=== PATIENT | female | born 1990 | race Caucasian/White ===

== ENCOUNTER 2024-04-17 05:20 | Inpatient (IN) | payer BC, SELFPAY ==
[2024-04-17 05:42] VITALS: BP 112/76; BMI 31.6
[2024-04-17 06:16] LABS: Hematocrit 29.4 % (37.0-47.0); Hemoglobin 9.6 g/dL (12.0-16.0); Mean Corp Hgb Conc. 32.7 g/dL (33.0-37.0); Mean Corpuscular Hgb 26.7 pg (27.0-31.0); Mean Corpuscular Volume 81.9 fL (81.0-99.0); Mean Platelet Volume 11.1 fL (7.4-10.4); Platelet Count 246 10^3/uL (130-400); Red Blood Cell Count 3.59 10^6/uL (4.20-5.40); Red Cell Dist. Width 14.4 % (11.5-14.5); White Blood Cell Count 9.4 10^3/uL (4.8-10.8)
[2024-04-17] MEDS: BICITRA 30 ML PO (06:27)
[2024-04-17] MEDS: TYLENOL 1000 MG PO (06:27)
[2024-04-17] MEDS: TORADOL 15 MG IV ×2 (13:14→19:19)
[2024-04-18] MEDS: TORADOL 15 MG IV ×2 (01:07→06:37)
[2024-04-18 05:32] LABS: Hematocrit 25.9 % (37.0-47.0); Hemoglobin 8.5 g/dL (12.0-16.0); Mean Corp Hgb Conc. 32.8 g/dL (33.0-37.0); Mean Corpuscular Hgb 27.5 pg (27.0-31.0); Mean Corpuscular Volume 83.8 fL (81.0-99.0); Mean Platelet Volume 11.8 fL (7.4-10.4); Platelet Count 212 10^3/uL (130-400); Red Blood Cell Count 3.09 10^6/uL (4.20-5.40); Red Cell Dist. Width 14.4 % (11.5-14.5); White Blood Cell Count 13.3 10^3/uL (4.8-10.8)
--- NOTE | 2024-04-18 08:04 | W.PN.ANS.POP ---
Anesthesia Post Operative
- Anesthesia Post Op Note
Vital Signs Stable-See Nursing Note: Yes
Airway Patent: Yes
Adequate Pain Control: Yes
Change in Mental Status: No
Current Postoperative Nausea & Vomiting: No
Anesthesia Complications: No
General Anesthetic Recall: No
Unplanned Admission: No
Post Op Hydration Adequate: Yes
[2024-04-18] MEDS: PRENATAL PLUS 1 TABLET PO (10:41)
[2024-04-18] MEDS: FEOSOL 325 MG PO (10:41)
[2024-04-18] MEDS: SENOKOT-S 1 TABLET PO (10:41)
[2024-04-18] MEDS: MOTRIN 600 MG PO ×2 (14:57→21:19)
[2024-04-18] MEDS: TYLENOL 650 MG PO ×2 (14:57→21:19)
[2024-04-19] MEDS: MOTRIN 600 MG PO (06:24)
[2024-04-19] MEDS: TYLENOL 650 MG PO (06:25)
[2024-04-19] MEDS: FEOSOL 325 MG PO ×2 (09:27)
[2024-04-19] MEDS: PRENATAL PLUS 1 TABLET PO (09:27)
--- NOTE | 2024-04-19 11:24 | W.DS.TRANS ---
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
-
Discharge Instructions:
Discharge Diagnosis/Procedures 39 wks; labor, elective repeat
section; anemia
Diet Regular
Instructions:
Stand-Alone Forms: LDRP Delivery
Changes to Home Medications: No
Discharge Medications:
DC Medications w/original date entered in [employer]
vit no.95-ferrous fumarate 28 mg-folic acid 800 mcg tablet () 1 tab PO DAILY Supplement 12/19/20
acetaminophen 325 mg tablet 650 mg (2 x 325 mg) PO Q4HPRN PRN mild pain #0 tabs 04/19/24
calcium carbonate (Calcium Antacid) 400 mg (2 x 200 mg calcium (500 mg)) PO Q6HPRN PRN indigestion #0 tabs 04/19/24
ferrous sulfate 325 mg (65 mg iron) tablet (FeroSul) 325 mg PO DAILY #0 tabs 04/19/24
ibuprofen 600 mg tablet 600 mg PO Q6HPRN PRN cramps #40 tabs 04/19/24
sennosides 8.6 mg-docusate sodium 50 mg tablet 1 tab PO DAILYPRN PRN constipation #0 tabs 04/19/24
Home Medication Changes
Pending Results: No
Total time spent discharging patient (in min): 20
[2024-04-21 11:30] LABS: Syphilis/T. pallidum Ab Reflex Negative (Negative)
== END 2024-04-19 10:53 | disposition home or self-care (01) | DRG 788 ==
LOC: LDRP 05:20
PROVIDERS: Obstetrics & Gynecology; ADMITTING PHYSICIAN Obstetrics & Gynecology; FAMILY PHYSICIAN Family Medicine
PROC: 10D00Z1 Extraction of Products of Conception, Low, Open Approach (ICD-10-PCS; 2024-04-17)
DX: O34.211 Maternal care for low transverse scar from previous cesarean delivery (principal); Z3A.39 39 weeks gestation of pregnancy; Z37.0 Single live birth; O99.62 Diseases of the digestive system complicating childbirth; K21.9 Gastro-esophageal reflux disease without esophagitis; J45.990 Exercise induced bronchospasm; O99.52 Diseases of the respiratory system complicating childbirth; O99.824 Streptococcus B carrier state complicating childbirth; O99.02 Anemia complicating childbirth; D64.9 Anemia, unspecified; Z82.3 Family history of stroke; Z80.8 Family history of malignant neoplasm of other organs or systems; Z83.49 Family history of other endocrine, nutritional and metabolic diseases; Z87.440 Personal history of urinary (tract) infections
CPT/HCPCS: 85027; 86780; 86850; 86900; 86901

== ENCOUNTER 2024-04-20 06:29 | Emergency (ER) | payer BC, SELFPAY ==
[2024-04-20] VITALS (22 sets, daily range): BP systolic 112–132; BP diastolic 76–95; BMI 31.6
--- NOTE | 2024-04-20 07:12 | EDRN ---
Connie Jarrett TUBE BALANCER currently at the pts bedside
--- NOTE | 2024-04-20 07:16 | ED.GENMED ---
History of Present Illness
<Colleen Jarrett COMMUNICATIONS OPERATOR - Last Filed: 04/20/24 16:00>
General
Chief Complaint: Breathing Problem
Source: patient
Exam Limitations: none
Time Seen by Provider: 04/20/24 07:05
Nursing documentation reviewed up to this point in time: agreed with
History of Present Illness
History of Present Illness:
33 you female 3 days post C section here for hands and feet feel swollen, shortness of breath even at rest. Denies CP, lightheadedness, denies abd pain other than healing incision. Denies fever/chills.
Past History
<Colleen Jarrett COMMUNICATIONS OPERATOR - Last Filed: 04/20/24 16:00>
Past History
ED Past Medical History: None
ED Past Surgical History:
Social History
Tobacco: Non-smoker
Alcohol: Occasional
Personal:
Living: with family
Employment: Not employed
Review of Systems
<Colleen Jarrett, COMMUNICATIONS OPERATOR - Last Filed: 04/20/24 16:00>
Review of Systems
Allergies reviewed?: Yes
All Other Systems: ROS reviewed and negative except as documented in HPI and ROS
Constitutional: Denies fever, fatigue or chills
Respiratory: Reports trouble breathing (feels 'winded' even at rest)
Cardiac: Denies chest pain
ABD/GI: Denies abdominal pain, nausea, vomiting or diarrhea
: Denies dysuria or difficulty voiding
Musculoskeletal: Reports other (hands and feet feel swollen)
Skin: Reports no symptoms
Neurological: Reports no symptoms
Phy Exam
<Colleen Jarrett, COMMUNICATIONS OPERATOR - Last Filed: 04/20/24 16:00>
Physical Exam
Physical Exam:
GENERAL: No acute distress. A&Ox3.
CONSTITUTIONAL: Afebrile.
EYES: clear, conjunctivae normal
ENMT: moist mucus membranes, Pharynx nl
RESPIRATORY: Regular respirations, nonlabored, lungs clear.
CARDIOVASCULAR: Regular rate and rhythm, no murmurs, no rubs.
GI: Soft, nontender, normal BS
MUSCULOSKELETAL: Moves with ease. Well perfused.
SKIN: Warm, dry, pink, incision healing well.
PSYCH: Normal mood and affect. Well kept, interactive and appropriate
NEUROLOGIC: Awake, alert and oriented. No focal neurological deficits
Course
<Colleen Jarrett COMMUNICATIONS OPERATOR - Last Filed: 04/20/24 16:00>
Orders/Labs/Results
Orders:
Orders
04/20/24 07:15
CR Chest - 2 Views Urgent
Comment:
Reason For Exam: SOB 3 days post C section
04/20/24 07:18
Complete Blood Count/With Diff Urgent
Comprehensive Metabolic Panel Urgent
NT-proBNP Urgent
Troponin I Urgent
Comment: ADD ON
04/20/24 07:23
Add On- LAB Urgent
Tests Added?: Troponin
04/20/24 08:32
Echo 2D MMode Color/Doppler Urgent
Reason for Study: SOB 3 days post c section
04/20/24 08:42
Urinalysis Reflex To Culture Urgent
Date Specimen was Collected: 04/20/24
Time Specimen was Collected: 07:23
Urine Microscopic Reflex Cult Urgent
Urine Culture Urgent
TONYA Source: U
Specimen Description:
Date Specimen was Collected: 04/20/24
Time Specimen was Collected: 07:23
04/20/24 12:23
* Blood Bank Products Urgent
Blood Bank Products: *Packed RBC Leuko(PRBC's)
Quantity: 1
Transfuse Today: Yes
Reason: Anemia
IV Insert/Care/Rem.- Treatment PRN
01/27/25 12:34
Type+Screen Urgent
Abnormal Lab Results
04/20/24 04/20/24 04/20/24
07:18 08:42 12:34
RBC 2.98 L 10^6/uL
(4.20-5.40)
Hgb 7.8 L g/dL
(12.0-16.0)
Hct 24.6 L %
(37.0-47.0)
MCH 26.2 L pg
(27.0-31.0)
MCHC 31.7 L g/dL
(33.0-37.0)
RDW 14.8 H %
(11.5-14.5)
Abs Immat Gran (auto) 0.2 H 10^3/uL
(0-0.05)
Immature Gran % 1.8 H %
(0-0.5)
Lymphocytes % 17.2 L %
(20.5-51.1)
Calcium 8.0 L mg/dl
(8.4-10.2)
AST 56 H U/L
(14-36)
Total Protein 5.2 L g/dl
(6.3-8.2)
Albumin 2.9 L g/dl
(3.5-5.0)
Ur Occult Blood Reflex 4+ A
(Negative)
Leukocyte Esterase Rfl 1+ A
(Negative)
Urine RBC 60-70 A /HPF
(0-2)
Urine Albumin (Reflex) 2+ A
(Neg - Trace)
Crossmatch IS Only See Detail
04/20/24 07:18
04/20/24 07:18
Vital Signs
Initial and Last Documented VS:
Initial Vital Signs
Temp Pulse Resp BP Pulse Ox
98.1 F 86 22 124/84 99
04/20/24 06:34 04/20/24 06:34 04/20/24 06:34 04/20/24 06:34 04/20/24 06:34
Last Documented Vital Signs
Temp Pulse Resp BP Pulse Ox
97.8 F 88 20 122/76 98
04/20/24 14:06 04/20/24 15:51 04/20/24 14:53 04/20/24 15:51 04/20/24 15:45
[employer] Sales Representative consulted with Physician
[employer] Sales Representative consulted with physician?: Yes
Name of Physician Consulted: Garrett
<Hector Tucker, DO - Last Filed: 04/20/24 07:32>
Orders/Labs/Results
Orders:
Orders
04/20/24 07:15
CR Chest - 2 Views Urgent
Comment:
Reason For Exam: SOB 3 days post C section
04/20/24 07:18
Complete Blood Count/With Diff Urgent
Comprehensive Metabolic Panel Urgent
NT-proBNP Urgent
Troponin I Urgent
Comment: ADD ON
04/20/24 07:23
Add On- LAB Urgent
Tests Added?: Troponin
04/20/24 08:32
Echo 2D MMode Color/Doppler Urgent
Reason for Study: SOB 3 days post c section
04/20/24 08:42
Urinalysis Reflex To Culture Urgent
Date Specimen was Collected: 04/20/24
Time Specimen was Collected: 07:23
Urine Microscopic Reflex Cult Urgent
Urine Culture Urgent
TONYA Source: U
Specimen Description:
Date Specimen was Collected: 04/20/24
Time Specimen was Collected: 07:23
04/20/24 12:23
* Blood Bank Products Urgent
Blood Bank Products: *Packed RBC Leuko(PRBC's)
Quantity: 1
Transfuse Today: Yes
Reason: Anemia
IV Insert/Care/Rem.- Treatment PRN
04/20/24 12:34
Type+Screen Urgent
Abnormal Lab Results
04/20/24 04/20/24 04/20/24
07:18 08:42 12:34
RBC 2.98 L 10^6/uL
(4.20-5.40)
Hgb 7.8 L g/dL
(12.0-16.0)
Hct 24.6 L %
(37.0-47.0)
MCH 26.2 L pg
(27.0-31.0)
MCHC 31.7 L g/dL
(33.0-37.0)
RDW 14.8 H %
(11.5-14.5)
Abs Immat Gran (auto) 0.2 H 10^3/uL
(0-0.05)
Immature Gran % 1.8 H %
(0-0.5)
Lymphocytes % 17.2 L %
(20.5-51.1)
Calcium 8.0 L mg/dl
(8.4-10.2)
AST 56 H U/L
(14-36)
Total Protein 5.2 L g/dl
(6.3-8.2)
Albumin 2.9 L g/dl
(3.5-5.0)
Ur Occult Blood Reflex 4+ A
(Negative)
Leukocyte Esterase Rfl 1+ A
(Negative)
Urine RBC 60-70 A /HPF
(0-2)
Urine Albumin (Reflex) 2+ A
(Neg - Trace)
Crossmatch IS Only See Detail
04/20/24 07:18
04/20/24 07:18
Vital Signs
Initial and Last Documented VS:
Initial Vital Signs
Temp Pulse Resp BP Pulse Ox
98.1 F 86 22 124/84 99
04/20/24 06:34 04/20/24 06:34 04/20/24 06:34 04/20/24 06:34 04/20/24 06:34
Last Documented Vital Signs
Temp Pulse Resp BP Pulse Ox
97.8 F 88 20 122/76 98
04/20/24 14:06 04/20/24 15:51 04/20/24 14:53 04/20/24 15:51 04/20/24 15:45
<Colleen Jarrett, COMMUNICATIONS OPERATOR - Last Filed: 04/20/24 16:00>
MDM/Problems Addressed
Differential Diagnosis Includes:
post pre eclampsia, CHF/Cardiomyopathy, PE, add symptomatic anemia as Hgb is 7.8
MDM/Problems Addressed:
33 you female 3 days post C section here for hands and feet feel swollen, shortness of breath even at rest. Denies CP, lightheadedness, denies abd pain other than healing incision. Denies fever/chills.
Afebrile, NAD, VSS, pulse ox99% RA
CBC: Hgb 7.8 (baseline 11.0, was 8.5 at discharge 2 days ago)
CMP: Normal
Troponin WNL
BNP WNL
CXR NAD
Dr. Tucker in to evaluate. Will get echocardiogram, if ok, most likely symptomatic anemia
11:30 AM: Echocardiogram results reviewed: Mild tricuspid regurg otherwise unremarkable
Consult OB Dr. Lewis who requests transfuse 1 U PRBCs
Blood consent form signed and scanned into chart
Blood infused, no sign adverse rx. Stable for discharge
<Colleen Jarrett, COMMUNICATIONS OPERATOR - Last Filed: 04/20/24 16:00>
*Critical Care Note
Total Time (30-74mins, 75-104mins- exclusive of procedures): Not Applicable
ED Attending Note
<Colleen Jarrett, COMMUNICATIONS OPERATOR - Last Filed: 04/20/24 16:00>
-
Portions of this chart may have been created with voice recognition software.� Occasional wrong word or��sound alike� substitutions may have occurred due to the inherent limitations of voice recognition software.
<Hector Tucker, DO - Last Filed: 04/20/24 07:32>
ED Attending Note
Patient seen and examined by attending physician: Yes
I performed the substantive portion of visit, reviewed & personally made and approve the management plan that is documented in note by myself or AROLDO.: Yes
ED Attending Note:
I have seen and evaluated the patient with a [id number] encounter. I have spoken to the advance practicer provider and involved in the medical history, the physical exam, medical decision making.
Evaluation and management service: agree unless noted differently below.
Results interpretation: agree unless noted differently below.
Focused HPI: 33-year-old female presenting with shortness of breath and leg swelling. Patient is and had a few days ago. Although she complains of leg swelling, she states it is bilateral and denies any leg pain. Planes of
shortness of breath but denies chest pain
Physical exam: Sitting in bed comfortably. Lungs appear clear. Mild bilateral leg edema without tenderness or erythema
Medical Decision Making: Patient is neither tachycardic nor hypoxic to suspect PE. Will obtain chest x-ray and basic blood work to rule out any evidence of preeclampsia or cardiomyopathy
Discharge Plan
Departure
Patient Disposition: Home (Routine Discharge)
Date of Disposition: 04/20/24
Time of Disposition: 15:10
Patient with high blood pressure during this ER visit?: No
Condition: Good
Discharge Problem:
Symptomatic anemia
Instructions: Anemia overview
Prescriptions:
No Action
PNV cmb#95-ferrous fumarate-FA [] 1 EACH tablet
1 tab PO DAILY
acetaminophen 325 mg Tablet
650 mg PO Q4HPRN PRN (Reason: mild pain) Qty: 0 0RF
sennosides-docusate sodium 8.6-50 mg Tablet
1 tab PO DAILYPRN PRN (Reason: constipation) Qty: 0 0RF
calcium carbonate [Calcium Antacid] 200 mg calcium (500 mg) Tablet,Chewable
400 mg PO Q6HPRN PRN (Reason: indigestion) Qty: 0 0RF
ibuprofen 600 mg Tablet
600 mg PO Q6HPRN PRN (Reason: cramps) Qty: 40 0RF
ferrous sulfate [FeroSul] 325 mg (65 mg iron) tablet
325 mg PO DAILY
Referrals:
Manuel Cruz MD [Family Provider] - Call in 1-3 days for appt
Activity Restrictions/Additional Instructions:
As we discussed, contact your OB doctor tomorrow and ask when you should follow up and with whom.
Interventions
Interventions:
*Risk Screen - Suicide Last Done: 04/20/24 06:34
*General Assessment Last Done: 04/20/24 06:48
*Neglect/Abuse Screening Last Done: 04/20/24 06:34
ED- Fall Risk Assessment Last Done: 04/20/24 06:48
*ED COVID-19 Vaccine History Last Done: 04/20/24 06:48
*Nursing Disposition Last Done: 04/20/24 15:58
ED- Cardiac Assessment Last Done: 04/20/24 06:52
ED-Female Genitourinary Assessment Last Done: 04/20/24 06:52
ED- Pulmonary Assessment Last Done: 04/20/24 06:52
Discharge Date and Time
Discharge Date/Time: 04/20/24 15:58
Print Language: TAMAZIGHT
[2024-04-20 07:27] LABS: % Basophils 0.4 % (0-2); % Eosinophils 3.7 % (0-6); % Immature Granulocytes 1.8 % (0-0.5); % Lymphocytes 17.2 % (20.5-51.1); % Monocytes 6.3 % (1.7-9.3); % Neutrophils 70.6 % (42.2-75.2); Absolute Eosinophils 0.3 10^3/uL (0-0.7); Absolute Immature Granulocytes 0.2 10^3/uL (0-0.05); Absolute Lymphocytes 1.6 10^3/uL (1.2-3.4); Absolute Monocytes 0.6 10^3/uL (0.1-0.6); Absolute Neutrophils 6.5 10^3/uL (1.4-6.5); Hematocrit 24.6 % (37.0-47.0); Hemoglobin 7.8 g/dL (12.0-16.0); Mean Corp Hgb Conc. 31.7 g/dL (33.0-37.0); Mean Corpuscular Hgb 26.2 pg (27.0-31.0); Mean Corpuscular Volume 82.6 fL (81.0-99.0); Mean Platelet Volume 10.2 fL (7.4-10.4); Nucleated Red Blood Cells % 0 %; Platelet Count 215 10^3/uL (130-400); Red Blood Cell Count 2.98 10^6/uL (4.20-5.40); Red Cell Dist. Width 14.8 % (11.5-14.5); White Blood Cell Count 9.2 10^3/uL (4.8-10.8)
[2024-04-20 07:40] LABS: ALT (SGPT) 25 U/L (0-35); AST (SGOT) 56 U/L (14-36); Albumin 2.9 g/dl (3.5-5.0); Alkaline Phosphatase 106 U/L (38-126); Blood Urea Nitrogen 9 mg/dl (7-17); Carbon Dioxide 26 mmol/L (22-30); Chloride 103 mmol/L (98-107); Estimated Creatinine Clearance > 125 ml/min; Glucose 82 mg/dl (70-99); Sodium 136 mmol/L (135-145); Total Bilirubin 0.2 mg/dl (0.2-1.3); Total Protein 5.2 g/dl (6.3-8.2); eGFR > 60.00
[2024-04-20 07:43] LABS: Potassium 3.7 mmol/L (3.5-5.1)
[2024-04-20 07:51] LABS: NT-proBNP 395 pg/ml; Troponin I < 0.012 ng/ml
[2024-04-20 08:52] LABS: Urine Albumin 2+ (Neg - Trace); Urine Bilirubin Negative (Negative); Urine Character Slightly Cloudy (Clear); Urine Color Amber; Urine Glucose Negative (Negative); Urine Ketone Negative (Negative); Urine Leukocyte 1+ (Negative); Urine Nitrite Negative (Negative); Urine Occult Blood 4+ (Negative); Urine Urobilinogen Negative (Neg - 1+)
[2024-04-20 09:06] LABS: Urine Squamous Cell 26-30 /LPF (Few)
[2024-04-20 09:07] LABS: Urine Red Blood Cell 60-70 /HPF (0-2)
--- NOTE | 2024-04-20 11:35 | EDRN ---
Connie Jarrett PROVIDER RELATIONS MANAGER currently at the pts bedside
--- NOTE | 2024-04-20 12:17 | EDRN ---
Connie Jarrett PLASTER MODEL AND MOLD MAKER currently at the pts bedside
== END 2024-04-20 15:58 | disposition home or self-care (01) ==
LOC: EMR 06:29
PROVIDERS: Registered Nurse; EMERGENCY PHYSICIAN Student in an Organized Health Care Education/Training Program; FAMILY PHYSICIAN Family Medicine
DX: D64.9 Anemia, unspecified (principal)
CPT/HCPCS: 99285; 36430; 71046; 80053; 81003; 81015; 83880; 84484; 85025; 86850; 86900; 86901; 86920; 87077; 87086; 87186; 93306; P9016